=== PATIENT | female | born 1990 | race Caucasian/White ===

== ENCOUNTER 2019-01-01 12:07 | Outpatient (CLI) | payer MEDICAID ==
[~2019-01-01] VITALS: Ht 157.5 cm; Wt 76.0 kg
== END 2019-01-01 14:10 | disposition home or self-care (01) ==
LOC: LDOP 12:07
PROVIDERS: ATTEND Obstetrics & Gynecology
DX: O42.913 Preterm premature rupture of membranes, unspecified as to length of time between rupture and onset of labor, third trimester (principal); Z3A.35 35 weeks gestation of pregnancy
CPT/HCPCS: 59025; 80307; 81003; 87081; 89060; 99201; G0463; Q0114